=== PATIENT | female | born 1975 | race Caucasian/White ===

== ENCOUNTER → 2017-12-05 | Outpatient (CLI) | payer BC | END | disposition home or self-care (01) | LOC: KCIC 16:05 | DX: M19.071 Primary osteoarthritis, right ankle and foot (principal); M77.31 Calcaneal spur, right foot | CPT/HCPCS: 73620; 73660 ==

== ENCOUNTER → 2019-05-07 | Outpatient (CLI) | payer BC ==
--- NOTE | 2019-05-08 15:59 | KCIC ---
Bilateral digital screening mammograms with 3-D tomosynthesis: Reason for examination: Routine baseline screening. Bilateral mammograms in CC and oblique projections were obtained with 2-D imaging and 3-D tomosynthesis imaging on a Siemens Inspiration unit and reviewed on the workstation. Interpretation was made with the benefit of CAD. The skin and nipples show no abnormalities. No abnormal axillary lymph nodes are seen. The breast parenchyma is heterogeneously dense. (Breast density: Category C.) There is a circumscribed lesion present in the right breast at the central 1:00 B position measuring approximately 1 cm in size. Further evaluation with ultrasound should be considered. There are no other dominant masses, suspicious calcifications or architectural distortion. Impression: 1 cm nodule present centrally at the 1:00 B position of the right breast. Recommend further evaluation with ultrasound. Your patient's mammogram demonstrates that she has dense breast tissue (breast density category C or D), which could hide abnormalities, and if she has other risk factors for breast cancer that have been identified, she might benefit from supplemental screening tests that may be suggested by you as her ordering physician. Dense breast tissue, in and of itself, is a relatively common condition. Therefore, this information is not provided to cause undue concern, but rather to raise your awareness and to promote discussion with your patient regarding the presence of other risk factors, in addition to dense breast tissue. Your patient's mammography results will be sent to her. BI-RAD Category 0: Incomplete. Needs additional imaging evaluation. "Our facility is accredited by the [employer] Mammography [employer]." This patient's information has been entered into a reminder system for the patient to be notified with the results of her examination and a target date for the next mammogram. Electronically signed by: Sherron Gan MD (05/08/2019 3:56 PM) [id number]
== END | disposition home or self-care (01) ==
LOC: KCIC MAMMO 17:23
PROVIDERS: ATTEND Nurse Practitioner Gerontology
DX: Z12.31 Encounter for screening mammogram for malignant neoplasm of breast (principal); N63.12 Unspecified lump in the right breast, upper inner quadrant
CPT/HCPCS: 77063; 77067

== ENCOUNTER → 2019-05-17 | Outpatient (CLI) | payer BC ==
--- NOTE | 2019-05-17 17:22 | KCIC ---
Right breast ultrasound: Reason for examination: Nodule on screening mammogram. Comparison is made to mammographic exam dated 05/07/2019. Right breast ultrasound was performed in the area of mammographic concern and at the axilla. In the 1:00 position 4 cm from the nipple, there is a 1.1 cm hypoechoic circumscribed lesion with posterior acoustic enhancement consistent with a complicated cyst. No other cystic or solid lesions are seen. No abnormal appearing lymph nodes are seen axilla. IMPRESSION: 1.1 cm circumscribed lesion consistent with a complicated cyst at the 1:00 position. Recommend 6 month follow-up with ultrasound. BI-RADS Category 3: Probably Benign. "Our facility is accredited by the [employer] Mammography [employer]." This patient's information has been entered into a reminder system for the patient to be notified with the results of her examination and a target date for the next mammogram. Electronically signed by: Sherron Gan MD (05/17/2019 5:19 PM) [id number]
== END | disposition home or self-care (01) ==
LOC: KCIC US 12:55
PROVIDERS: ATTEND Nurse Practitioner Gerontology
DX: R92.2 Inconclusive mammogram (principal)
CPT/HCPCS: 76641

== ENCOUNTER → 2019-10-31 | Outpatient (CLI) | payer BC ==
--- NOTE | 2019-10-31 09:36 | KCIC ---
Right breast ultrasound: Reason for examination: Follow-up nodule. Comparison is made to previous study dated 05/17/2019. Ultrasound examination of the right breast and axilla was performed. At the 1:00 position 4 cm from the nipple, there continues to be a 1 cm hypoechoic circumscribed lesion in parallel orientation which shows some mild posterior acoustic enhancement and probably represents a fibroadenoma. This is unchanged. No abnormal appearing lymph nodes are seen in the axilla. IMPRESSION: Stable nodule probably representing a fibroadenoma in the 1:00 position of the right breast. Recommend reevaluation with ultrasound in 6 months which can be performed at the time of bilateral mammograms. BI-RADS Category 3: Probably Benign. "Our facility is accredited by the [employer] Mammography [employer]." This patient's information has been entered into a reminder system for the patient to be notified with the results of her examination and a target date for the next mammogram. Electronically signed by: Sherron Gan MD (10/31/2019 9:33 AM) [id number]
== END | disposition home or self-care (01) ==
LOC: KCIC US 08:32
PROVIDERS: ATTEND Nurse Practitioner Gerontology
DX: N64.89 Other specified disorders of breast (principal)
CPT/HCPCS: 76641

== ENCOUNTER → 2020-05-13 | Outpatient (CLI) | payer BC ==
--- NOTE | 2020-05-13 17:35 | KCIC ---
Bilateral diagnostic digital mammograms with 3-D tomosynthesis: Reason for examination: Right breast lumps. Comparison is made to previous study dated 05/07/2019. Bilateral mammograms in CC and oblique projections were obtained with 2-D imaging and 3-D tomosynthesis imaging on a Siemens Inspiration unit and reviewed on the workstation. Interpretation was made with the benefit of CAD. The skin and nipples show no abnormalities. No abnormal axillary lymph nodes are seen. The breast parenchyma is extremely dense. (Breast density: Category D.) There are several small nodular parenchymal densities present in the right breast. These are fairly well-circumscribed and shows no associated calcifications. There are no suspicious calcifications seen. Impression: Small nodules in the right breast. Ultrasound to follow. Your patient's mammogram demonstrates that she has dense breast tissue (breast density category C or D), which could hide abnormalities, and if she has other risk factors for breast cancer that have been identified, she might benefit from supplemental screening tests that may be suggested by you as her ordering physician. Dense breast tissue, in and of itself, is a relatively common condition. Therefore, this information is not provided to cause undue concern, but rather to raise your awareness and to promote discussion with your patient regarding the presence of other risk factors, in addition to dense breast tissue. Your patient's mammography results will be sent to her. BI-RAD Category 0: Incomplete. Needs additional imaging evaluation. Right breast ultrasound: Comparison is made to previous studies dated 10/31/2019 and 05/17/2019. Right whole breast ultrasound including evaluation of all 4 quadrants and the retroareolar and axillary regions of the right breast was performed. At the 1:00 position 4 cm from the nipple, there continues to be a 8.3 x 7.7 mm hypoechoic circumscribed lesion in parallel orientation which probably represents a complicated cyst or fibroadenoma and is stable. There is also a more superficial hypoechoic fibrocystic type nodule measuring 8.1 x 7 mm in greatest dimension. At the 2:00 position 4.5 cm from the nipple, there is a 6 mm hypoechoic fibrocystic lesion. In the 4:00 position 3 cm from the nipple, there is a 4.8 mm hypoechoic fibrocystic lesion. At the 5:00 position 2.5 cm from the nipple, there is a 4.9 mm hypoechoic fibrocystic lesion. In the 6:00 position there are 2 small hypoechoic nodules measuring 2.8 and 3.6 mm in size which have benign fibrocystic or fibroadenomatous appearances. In the 9:00 position 9 cm from the nipple, there is an 8.5 and only a hypoechoic circumscribed lesion with some posterior acoustic enhancement consistent with a probable complicated cyst. In the 10:00 position 6 cm from the nipple, there is a 5.8 mm hypoechoic fibrocystic lesion. In the area of clinical concern at the 11:00 position 3 cm from the nipple and in the 11:00 position 10 cm from the nipple, there are no focal abnormality seen. Note is made of some ductal ectasia in the retroareolar position. No abnormal appearing lymph nodes are seen in the axilla. IMPRESSION: Multiple small benign-appearing nodules with cystic, fibrocystic and fibroadenomatous appearances. No suspicious lesions are seen. Recommend 6 month follow-up with ultrasound. BI-RADS Category 3: Probably Benign. "Our facility is accredited by the [employer] Mammography [employer]." This patient's information has been entered into a reminder system for the patient to be notified with the results of her examination and a target date for the next mammogram. Electronically signed by: Sherron Gan MD (05/13/2020 5:33 PM) [facility]
== END | disposition home or self-care (01) ==
LOC: KCIC MAMMO 08:43
PROVIDERS: ATTEND Nurse Practitioner Gerontology
DX: R92.2 Inconclusive mammogram (principal); N64.4 Mastodynia; N63.10 Unspecified lump in the right breast, unspecified quadrant
CPT/HCPCS: 76641; 77066; G0279; 77062

== ENCOUNTER → 2020-11-12 | Outpatient (CLI) | payer BC, OTHER ==
--- NOTE | 2020-11-12 09:39 | KCIC ---
Right breast ultrasound: Reason for examination: Follow-up nodules. Comparison is made to previous studies dated back to 05/17/2019. Right whole breast ultrasound including evaluation of all 4 quadrants and the retroareolar and axilla ry regions of the right breast was performed. There continue to be multiple small hypoechoic circumscribed nodules consistent with fibroadenoma and fibrocystic lesions throughout the breast which are all subcentimeter in size and appear to be stabl e. There are no new or suspicious nodules seen. There are no abnormal appearing lymph nodes in the ri ght axilla. IMPRESSION: Multiple small subcentimeter fibrocystic and fibroadenomatous type nodules throughout the right breas t which appear to be stable. Recommend continued 6 month follow-up which can be performed at the time of bilateral mammograms. BI-RADS Category 3: Probably Benign. "Our facility is accredited by the [employer] Mammography [employer]." This patient's information has been entered into a reminder system for the patient to be notified wit h the results of her examination and a target date for the next mammogram. Electronically signed by: Sherron Gan MD (11/12/2020 9:36 AM) [facility]
== END ==
LOC: KCIC US 07:48
PROVIDERS: ATTEND Nurse Practitioner Gerontology
DX: N63.10 Unspecified lump in the right breast, unspecified quadrant (principal)
CPT/HCPCS: 76641

== ENCOUNTER → 2021-05-13 | Outpatient (CLI) | payer OTHER ==
--- NOTE | 2021-05-13 16:31 | KCIC ---
Bilateral diagnostic digital mammograms with 3-D tomosynthesis: Reason for examination: Follow-up nodules. Comparison is made to previous studies dated 05/13/2020 and 05/07/2019. Bilateral mammograms in CC and oblique projections were obtained with 2-D imaging and 3-D tomosynthes is imaging on a Siemens Inspiration unit and reviewed on the workstation. Interpretation was made wit h the benefit of CAD. The skin and nipples show no abnormalities. No abnormal axillary lymph nodes are seen. The breast par enchyma is heterogeneously dense. (Breast density: Category C.) There continue to be small nodular de nsities at approximately the 12:30 B and 1:00 B positions. There are no new dominant masses, suspicio us calcifications or architectural distortion. Impression: Continued presence of small circumscribed nodules at the 12:30 B and 1:00 B positions of the right br east. Ultrasound to follow. Your patient's mammogram demonstrates that she has dense breast tissue (breast density category C or D), which could hide abnormalities, and if she has other risk factors for breast cancer that have bee n identified, she might benefit from supplemental screening tests that may be suggested by you as her ordering physician. Dense breast tissue, in and of itself, is a relatively common condition. Therefo re, this information is not provided to cause undue concern, but rather to raise your awareness and t o promote discussion with your patient regarding the presence of other risk factors, in addition to d ense breast tissue. Your patient's mammography results will be sent to her. BI-RAD Category 0: Incomplete. Needs additional imaging evaluation. Right breast ultrasound: Comparison is made to previous studies dated 11/12/2020 and 05/13/2020. Ultrasound examination of the right breast and axilla was performed. At the 1:00 position 4 cm from the nipple, there are 2 small nodules present measuring 8 x 5.8 mm in size and 6.5 x 8.7 mm in size. These nodules are well-circumscribed and lie in parallel orientation w ith no abnormal vascularity and appear to be stable. There also is a small 4.6 mm hypoechoic fibrocys tic nodule at the 12:00 position 5.5 cm from the nipple. No suspicious nodules are seen. No abnormal appearing lymph nodes are seen in the right axilla. IMPRESSION: Stable nodules consistent with fibroadenoma. No suspicious nodules seen. Recommend routine mammograph ic follow-up. BI-RADS Category 2: Benign. "Our facility is accredited by the [employer]amm[employer]." This patient's information has been entered into a reminder system for the patient to be notified wit h the results of her examination and a target date for the next mammogram. Electronically signed by: Sherron Gan MD (05/13/2021 4:29 PM) [email or web address]
== END ==
LOC: KCIC MAMMO 13:02
PROVIDERS: ATTEND Family Medicine
DX: Z09 Encounter for follow-up examination after completed treatment for conditions other than malignant neoplasm (principal); N63.12 Unspecified lump in the right breast, upper inner quadrant
CPT/HCPCS: 76641; 77066; G0279; 77062